=== PATIENT | male | born 1975 | race African-American/Black ===

== ENCOUNTER → 2016-05-02 | Outpatient (CLI) | payer OTHER ==
[~2016-05-02] MED LIST: PRINIVIL20 MG PO
== END ==
LOC: COL.PUL 12:49
DX: R91.1 Solitary pulmonary nodule (principal)

== ENCOUNTER 2016-06-13 09:49 | Day surgery (SDC) | payer OTHER ==
[~2016-06-13] VITALS: Ht 180.3 cm; Wt 80.2 kg
[2016-06-13 10:29] VITALS: BP 126/63; PULSE 60; TEMP 98.4
[2016-06-13] MEDS ORDERED: PRINIVIL20 MG PO (10:40)
[2016-06-13 12:30] VITALS: BP 122/61; PULSE 82
[2016-06-13 12:45] VITALS: BP 111/60; PULSE 72
[2016-06-13 13:00] VITALS: BP 122/67; PULSE 70
[2016-06-13 13:15] VITALS: BP 114/63; PULSE 86
== END 2016-06-13 13:10 | disposition home or self-care (01) ==
LOC: SDCO 09:49
DX: R91.8 Other nonspecific abnormal finding of lung field (principal); I10 Essential (primary) hypertension
CPT/HCPCS: J2704

== ENCOUNTER → 2016-06-20 | Outpatient (CLI) | payer OTHER | LOC: COL.PUL 10:38 | DX: J45.998 Other asthma (principal) | CPT/HCPCS: J7674 ==